=== PATIENT | male | born 1960 | race Caucasian/White ===

== ENCOUNTER 2016-11-12 09:43 | Outpatient (CLI) | payer OTHER ==
[2012-09-04 11:20] VITALS: O2SAT 98
[2016-11-12 11:04] LABS: BASOPHILS % (AUTO) 1 % (0-3); EOSINOPHILS % (AUTO) 4 % (0-9); HEMATOCRIT 41 % (39-53); MEAN CORPUSCULAR HGB CONC 35.1 gm/dl (32.0-36.0); MONOCYTES % (AUTO) 10.9 % (0-12); NEUTROPHILS % (AUTO) 54.1 % (37-80)
[2016-11-12 11:08] LABS: MEAN CORPUSCULAR VOLUME 81 fL (80-100)
== END 2016-11-12 09:44 | disposition home or self-care (01) | DRG 566 ==
LOC: CONVCARE 09:43
PROVIDERS: ATTEND Orthopaedic Surgery
DX: M25.442 Effusion, left hand (principal); M25.551 Pain in right hip; M25.441 Effusion, right hand; M75.82 Other shoulder lesions, left shoulder; M54.5 Low back pain
CPT/HCPCS: 36415; 72120; 73030; 73130; 84550; 85025; 85651

== ENCOUNTER 2016-12-08 09:22 | Day surgery (SDC) | payer OTHER ==
[2016-12-08 09:44] VITALS: TEMP 97.5
[2016-12-08] MEDS ORDERED: LIDOCAINE HCL 1% MPF SOL ONE (09:44)
[2016-12-08] MEDS: DEXAMETHASONE SOD PHOS PF 10 MG/ML SOL IJ ONE ×2 (10:14→10:21)
[2016-12-08 10:32] VITALS: BP 109/57; PULSE 53; RESP 16; O2SAT 98
== END 2016-12-08 10:45 | disposition home or self-care (01) | DRG 552 ==
LOC: SURG 09:22
PROVIDERS: ATTEND Nurse Anesthetist, Certified Registered
DX: M54.5 Low back pain (principal); M48.00 Spinal stenosis, site unspecified
CPT/HCPCS: J1100; J2001

== ENCOUNTER 2017-02-04 10:02 | Outpatient (CLI) | payer OTHER ==
[2016-12-08 10:32] VITALS: O2SAT 98
[2017-02-04 10:56] LABS: BASOPHILS % (AUTO) 1 % (0-3); EOSINOPHILS % (AUTO) 6 % (0-9); HEMATOCRIT 41 % (39-53); MEAN CORPUSCULAR HGB CONC 34.1 gm/dl (32.0-36.0); MEAN CORPUSCULAR VOLUME 85 fL (80-100); MONOCYTES % (AUTO) 7.7 % (0-12); NEUTROPHILS % (AUTO) 53.5 % (37-80)
== END 2017-02-04 10:03 | disposition home or self-care (01) | DRG 552 ==
LOC: CONVCARE 10:02
PROVIDERS: ATTEND Orthopaedic Surgery
DX: M54.2 Cervicalgia (principal); M25.512 Pain in left shoulder
CPT/HCPCS: 36415; 72040; 84550; 85025; 85651

== ENCOUNTER 2017-07-13 12:22 | Day surgery (SDC) | payer OTHER ==
[2017-07-13] MEDS ORDERED: DEXAMETHASONE SOD PHOS PF 10 MG/ML SOL IJ ONE (13:23)
[2017-07-13] MEDS ORDERED: BUPIVACAINE HCL 0.25% MPF 10 ML SOL INFIL ONE (13:23)
[2017-07-13] MEDS ORDERED: LIDOCAINE HCL 1% MPF SOL ONE (13:40)
[2017-07-13 14:17] VITALS: BP 122/79; PULSE 68; RESP 20; TEMP 97.4; O2SAT 96
== END 2017-07-13 14:47 | disposition home or self-care (01) | DRG 552 ==
LOC: SURG 12:22
PROVIDERS: ATTEND Nurse Anesthetist, Certified Registered
DX: M54.5 Low back pain (principal); M54.16 Radiculopathy, lumbar region
CPT/HCPCS: J1100; J2001

== ENCOUNTER 2017-08-23 10:13 | Day surgery (SDC) | payer OTHER ==
[2017-08-23] MEDS ORDERED: DIAZEPAM 5 MG TAB ONE (10:23)
[2017-08-23] MEDS ORDERED: BUPIVACAINE HCL 0.25% MPF 10 ML SOL INFIL ONE ×2 (10:44→11:08)
[2017-08-23] MEDS: DEXAMETHASONE SOD PHOS PF 10 MG/ML SOL IJ ONE ×3 (11:03→11:08)
[2017-08-23] MEDS ORDERED: LIDOCAINE HCL 1% MPF SOL ONE (11:09)
[2017-08-23 11:23] VITALS: RESP 20; TEMP 98.7
[2017-08-23 11:37] VITALS: BP 152/94; PULSE 63; O2SAT 96
== END 2017-08-23 11:40 | disposition home or self-care (01) | DRG 552 ==
LOC: SURG 10:13
PROVIDERS: ATTEND Nurse Anesthetist, Certified Registered
DX: M48.062 Spinal stenosis, lumbar region with neurogenic claudication (principal); M51.17 Intervertebral disc disorders with radiculopathy, lumbosacral region
CPT/HCPCS: A9270-GY; J1100; J2001